=== PATIENT | female | born 1995 | race Caucasian/White ===

== ENCOUNTER → 2020-07-25 10:08 | Outpatient (CLI) | payer BC, SELFPAY ==
--- NOTE | 2020-07-25 13:47 | PC.NURSE ---
PATIENT NOTIFIED OF POSITIVE COVID TEST AT THIS TIME
== END ==
PROVIDERS: PCP Nurse Practitioner Family; Visit Provider Nurse Practitioner
DX: Z20.828 Contact with and (suspected) exposure to other viral communicable diseases (principal); U07.1 COVID-19
CPT/HCPCS: U0003

== ENCOUNTER 2021-08-06 10:04 | Emergency (ER) | payer BC, SELFPAY ==
[2021-08-06 10:35] VITALS: BP 0/0; PULSE 0; RESP 0; TEMP -17.7; TEMP 0
== END 2021-08-06 10:36 | disposition left against medical advice (07) ==
LOC: UTC 10:10
PROVIDERS: Emergency Provider Nurse Practitioner Family; PCP Nurse Practitioner Family
DX: Z53.21 Procedure and treatment not carried out due to patient leaving prior to being seen by health care provider (principal)

== ENCOUNTER → 2021-08-06 10:19 | Outpatient (CLI) | payer BC, SELFPAY | PROVIDERS: PCP Nurse Practitioner Family; Visit Provider Nurse Practitioner | DX: Z20.822 Contact with and (suspected) exposure to COVID-19 (principal) | CPT/HCPCS: C9803; U0003; U0005 ==

== ENCOUNTER 2021-08-27 15:50 | Emergency (ER) | payer BC, SELFPAY ==
[2021-08-27 16:20] VITALS: BP 140/58; PULSE 85; RESP 18; O2SAT 97; BMI 28.5
--- NOTE | 2021-08-27 17:34 | HMH.EDUTC ---
[facility] [place] Disposition Clinical Impression: Nausea & vomiting Qualifiers: Vomiting type: unspecified Qualified Code(s): R11.2 - Nausea with vomiting, unspecified Disposition: Home, Self-Care Condition on Discharge: Good Instructions: DI for Dehydration -- Adult, Nausea and Vomiting-Adult, Promethazine Additional Instructions: Drink extra fluids with and between meals. If you have difficulty drinking, try very small amounts of water or suck on ice chips. ? Avoid fruit juices, as these do not replace minerals and can actually increase diarrhea. ? Children and adults can use sports drinks to replenish electrolytes. Younger children and infants should use products formulated for children, like oral rehydration solutions. ? Eat food in small amounts and let your stomach recover. ? Get lots of rest. You may feel tired or weak. ? No greasy or fried foods for the next 24-48 hours BRAT diet Bananas Rice Apples and [place] ? Make sure to drink plenty of liquids ? Return if needed ? Straight to ER if any life threatening symptoms ? Follow up with family doctor in the next 48-72 hours if no improvement or any worsening of symptoms Use Phenergan suppositorys if you are unable to tolerate the pills and continue vomiting Follow up with your OBGYN for further evaluation and treatment Prescriptions: Promethazine HCl [Phenergan 12.5mg Suppository] 12.5 mg RC Q8HP PRN #10 each PRN Reason: Vomiting Transmission Status: Received by [facility] Referrals: Provider,Referral, [Primary Care Provider] - As needed Time of Disposition: 17:44 Medical Decision Making - Aston Inquiry Pt receiving controlled substance: No Aston was queried for this patient: No Vital Signs: 08/27/21 16:20 08/27/21 17:56 Temperature 98.1 F Pulse Rate 85 Pulse Rate [Right Brachial] 85 Respiratory Rate 18 18 Blood Pressure 140/58 L Blood Pressure [Right Arm] 140/58 L Blood Pressure Mean [Right Arm] 85 Blood Pressure Source [Right Arm] Automatic Cuff Blood Pressure Position [Right Arm] Sitting 02 Sat by Pulse Oximetry 97 Oxygen Delivery Method Room Air Orders (Tests/Meds): ED MEDICATIONS Discontinued Medications Generic Name Dose Route Start Last Admin Trade Name Freq PRN Reason Stop Dose Admin Sodium Chloride 1,000 mls @ 999 mls/hr 08/27/21 16:45 08/27/21 16:20 Sod Chlor 0.9% 1000ml Bag IV 08/27/21 17:45 999 mls/hr .Q1H1M GABBIE Administration Promethazine HCl 12.5 mg 08/27/21 17:42 08/27/21 18:00 Promethazine Hcl 25mg/Ml 1ml Vial IV 08/27/21 17:43 12.5 mg ONCE ONE Administration Sodium Chloride 25 ml 08/27/21 17:42 08/27/21 18:00 Sodium Chloride 0.9% 25ml Bag IV 08/27/21 17:43 25 ml ONCE ONE Administration Medical Decision Narrative: medication discussed with pharmacy Patient states that she has been unable to take oral phenergan due to vomiting therefore will give some suppository phenergan to help with N/V Patient states that she is feeling much better after fluids Lips moist [facility] HPI - General Stated complaint: need fluids Time Seen by Provider: 08/27/21 16:30 Mode of Arrival: Ambulatory Source of Information: Patient Limitations: No Limitations Description of Symptoms (Recalled from Triage Doc. by RN): PATIENT C/O NAUSEA/VOMITING AND DIZZINESS. STATES SHE FEELS DEHYDRATED AND NEEDS IV FLUIDS HEENT Symptoms (Recalled from RN notes): No Resp Symptoms (Recalled from RN notes): No Skin Symptoms (Recalled from RN notes): No MS Symptoms (Recalled from RN notes): No Functional Status (Recalled from RN notes): WNL - History of Present Illness Provider Complaint: Patient states that she has been having nausea and vomiting for several days States that today it is worse States that she is 10wks OB and she hasnt been able to keep anything down States that she feels like she is dehydrated and felt a little dizzy earlier when she stood up State that she spoke with her OBGYN and they recommended
[2021-08-27 17:56] VITALS: BP 140/58; PULSE 85; RESP 18; TEMP 36.7; O2SAT 97
== END 2021-08-27 18:05 | disposition home or self-care (01) ==
PROVIDERS: Emergency Provider Nurse Practitioner
DX: R11.2 Nausea with vomiting, unspecified (principal); R42 Dizziness and giddiness; Z3A.10 10 weeks gestation of pregnancy
CPT/HCPCS: 96365; 96375; 99202; G0463

== ENCOUNTER 2021-12-09 09:02 | Emergency (ER) | payer BC, SELFPAY ==
[2021-12-09 09:19] VITALS: BP 150/79; PULSE 91; RESP 18; TEMP 36.8; O2SAT 99; BMI 33.7
[2021-12-09 09:35] LABS: Strep Scrn Group A (Rapid) Negative (Negative)
[2021-12-09 09:39] LABS: UTC Influenza A Antigen Negative (Negative)
[2021-12-09 09:40] LABS: UTC Influenza B Antigen Negative (Negative)
--- NOTE | 2021-12-09 09:51 | HMH.EDUTC ---
[facility] [place] Disposition Clinical Impression: Strep throat Disposition: Home, Self-Care Condition on Discharge: Good Instructions: Strep Throat, DI for Strep Throat Additional Instructions: Drink plenty of fluids. Take tylenol for pain or fever. Take the medications as directed. Follow up with your regular doctor. GO TO THE ER FOR ANY WORSENING SYMPTOMS Throw your tooth brush away and get a new one. Prescriptions: Azithromycin [Z-Kalin 250mg Tab*] 250 mg PO UD DOSE PK #6 tab Transmission Status: Received by [facility] Referrals: Provider,Referral, [Primary Care Provider] - Forms: Work/School Release Time of Disposition: 09:55 Medical Decision Making - Medical Records Medical records reviewed: No: I reviewed the patient's medical records. - Aston Inquiry Pt receiving controlled substance: No Vital Signs: 12/09/21 09:19 12/09/21 09:56 Temperature 98.2 F 98.2 F Temperature Source Oral Pulse Rate 85 Pulse Rate [Left] 91 H Respiratory Rate 18 18 Blood Pressure 122/78 Blood Pressure [Right Arm] 150/79 H Blood Pressure Mean [Right Arm] 102 Blood Pressure Source [Right Arm] Automatic Cuff Blood Pressure Position [Right Arm] Supine 02 Sat by Pulse Oximetry 99 - Lab Data Lab results reviewed: Yes: I reviewed the patient's lab results. Lab Results 12/09/21 09:15: Group A Strep Rapid Negative 12/09/21 09:20: Influenza Type A Ag Negative, Influenza Type B Ag Negative Orders (Tests/Meds): ORDERS Category Date Time Status Strep Screen Confirmation Stat Micro 12/09/21 09:15 Received [facility] [place] HPI - General Stated complaint: sore throat Time Seen by Provider: 12/09/21 09:20 Mode of Arrival: Ambulatory Source of Information: Patient Description of Symptoms (Recalled from Triage Doc. 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 HEENT Symptoms (Recalled from RN notes): Yes Resp Symptoms (Recalled from RN notes): Yes Skin Symptoms (Recalled from RN notes): No MS Symptoms (Recalled from RN notes): No Functional Status (Recalled from RN notes): wnl - History of Present Illness Provider Complaint: She has had a sore throat for the past 2 days. She is 24 weeks . - Related Data Previous Rx's Medication Instructions Recorded Promethazine HCl [Phenergan 12.5mg 12.5 mg RC Q8HP PRN #10 each 08/27/21 Suppository] Azithromycin [Z-Kalin 250mg Tab*] 250 mg PO UD DOSE PK #6 tab 12/09/21 Allergies Allergy/AdvReac Type Severity Reaction Status Date / Time amoxicillin Allergy Verified 12/09/21 09:27 dextromethorphan Allergy Verified 12/09/21 09:27 [From Delsym] diphenhydramine Allergy Verified 12/09/21 09:27 [From Benadryl] - Worker's Comp Is this a Worker's Comp case?: No H History - Hepatitis A Screen Attestation statement:: This patient has been screened for Hepatitis A risk factors. I have reviewed the patient's past medical history: Yes ROS Obtained: Yes All systems reviewed & no additional complaints - Constitutional Constitutional: Reports chills, Denies fever(s), Reports poor appetite, Reports malaise - Eyes Eyes: Denies eye discharge - ENT Ears, Nose, Mouth, and Throat: Reports as per HPI - Cardiovascular Cardiovascular: Denies chest pain - Respiratory Respiratory: Denies chest congestion, Denies cough Physical Exam - General General appearance: alert, in no apparent distress - Head Head exam: atraumatic, normocephalic, normal inspection - Eye Eye exam: Present: normal appearance, PERRL, EOMI - ENT ENT exam: Present: mucous membranes moist, normal external ear exam - Expanded ENT Exam TM/Canal exam: Bilateral TM: erythema, bulging Nose exam: Absent: sinus tenderness Nasal speculum exam: Bilateral: normal Throat exam: Present: tonsillar erythema, tonsillomegaly, tonsillar exudate - Neck Neck exam: Present: carisa
[2021-12-09 09:56] VITALS: BP 122/78; PULSE 85; RESP 18; TEMP 36.8
== END 2021-12-09 10:02 | disposition home or self-care (01) ==
PROVIDERS: Emergency Provider Nurse Practitioner Family
DX: J02.0 Streptococcal pharyngitis (principal); Z3A.24 24 weeks gestation of pregnancy
CPT/HCPCS: 87430; 87804; 99212; G0463

== ENCOUNTER 2022-07-08 09:02 | Emergency (ER) | payer BC, SELFPAY ==
[2022-07-08 11:04] VITALS: BP 133/79; PULSE 102; RESP 18; TEMP 37.2; O2SAT 98; BMI 24.9
--- NOTE | 2022-07-08 11:05 | EXP.UTC ---
Discharge Plan Disposition Patient Disposition: Home, Self-Care Condition: Good Prescriptions Prescriptions: New azithromycin [Zithromax] 250 mg tablet 250 mg PO UD DOSE PK Qty: 6 0RF Rx Instructions: Take two (2) tablets today, then one (1) tablet days #2 thru #5 No Action promethazine 12.5 MG suppository 12.5 mg RC Q8HP PRN (Reason: Vomiting) Qty: 10 0RF azithromycin 250 MG tablet 250 mg PO UD DOSE PK Qty: 6 0RF Rx Instructions: Take two (2) tablets today, then one (1) tablet days #2 thru #5 Referrals Follow up/Referrals: Provider,Referral, MD [Primary Care Provider] - See instructions Activity Restrictions/Add. Instructions Additional Instructions/Restrictions: Drink plenty of fluids. Take tylenol or ibuprofen for pain or fever. Take the medications as directed. Follow up with your regular doctor. GO TO THE ER FOR ANY WORSENING SYMPTOMS Clinical Impressions Clinical Impression: Pharyngitis Stand Alone Forms Stand Alone Forms: Work/School Release Instructions Patient Instructions: DI for Pharyngitis/Tonsillopharyngitis -- Adult Discharge ED Provider: Angel Louis [facility] General Stated complaint: sore throat Time Seen by Provider: 07/08/22 11:05 History of Present Illness Provider Complaint: She states that since yesterday she has had a sore throat, chills, and she has felt bad. 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 Related Data Previous Rx's Medication Instructions Recorded promethazine 12.5 mg rectal 12.5 mg RC Q8HP PRN Vomiting #10 ea 08/27/21 suppository azithromycin 250 mg tablet 250 mg PO UD DOSE PK #6 tabs 12/09/21 azithromycin 250 mg tablet 250 mg PO UD DOSE PK #6 tabs 07/08/22 (Zithromax) Allergies Allergy/AdvReac Type Severity Reaction Status Date / Time amoxicillin Allergy Verified 07/08/22 11:07 dextromethorphan Allergy Verified 07/08/22 11:07 [From Delsym] diphenhydramine Allergy Verified 07/08/22 11:07 [From Benadryl] [facility] Social History Smoking Status: Never smoker alcohol intake: never current occupational status: employed Travel in the last 8 weeks: None ROS Obtained: Yes All systems reviewed & no additional complaints except as documented Constitutional Constitutional: Reports chills and Reports fever(s) Eyes Eyes: Denies eye discharge ENT Ears, Nose, Mouth, and Throat: Reports as per HPI Cardiovascular Cardiovascular: Denies chest pain Respiratory Respiratory: Denies chest congestion and Reports cough Gastrointestinal Gastrointestingal: Reports nausea; Denies abdominal pain, constipation, cramping, diarrhea or vomiting Musculoskeletal Musculoskeletal: Denies arthralgias Integumentary/Breasts Skin/Breast: Denies rash Neurologic Neurologic: Denies paresthesias Physical Exam General General appearance: alert and in no apparent distress Head Head exam: atraumatic, normocephalic and normal inspection Eye Eye exam: Present normal appearance, PERRL and EOMI ENT ENT exam: Present mucous membranes moist and normal external ear exam Expanded ENT Exam TM/Canal exam: Bilateral TM: erythema and bulging Nose exam: Absent sinus tenderness Mouth exam: Present normal external inspection; Absent drooling Teeth exam: Present normal inspection Throat exam: Present tonsillar erythema, tonsillomegaly and tonsillar exudate Neck Neck exam: Present normal inspection, full ROM and trachea midline; Absent tenderness, meningismus or lymphadenopathy Chest Chest inspection: Present normal inspection and symmetric chest wall rise; Absent tenderness Respiratory Respiratory exam: Present normal lung sounds bilaterally; Absent respiratory distress, wheezes or stridor Cardiovascular Cardiovascular exam: Present regular rate and normal rhythm; Absent systolic murmur or diastolic m
[2022-07-08 11:13] LABS: UTC Influenza A Antigen Negative (Negative); UTC Strep Screen (Rapid) Negative (Negative)
[2022-07-08 11:14] LABS: UTC Influenza B Antigen Negative (Negative)
[2022-07-08 11:34] VITALS: BP 133/79; PULSE 102; RESP 18; TEMP 37.2
[2022-07-08 11:41] LABS: Adenovirus,PCR Not Detected (NotDetected); Bordetella Pertussis Not Detected (NotDetected); Chlamydophila Pneumoniae, PCR Not Detected (NotDetected); Coronavirus 19, PCR Not Detected (NotDetected); Coronavirus 229E Not Detected (NotDetected); Coronavirus NL63 Not Detected (NotDetected); Coronavirus OC43 Not Detected (NotDetected); Coronovirus HKU1,PCR Not Detected (NotDetected); Human Metapneumovirus Not Detected (NotDetected); Influenza A, PCR Not Detected (NotDetected); Influenza AH1, 2009 Not Detected (NotDetected); Influenza AH1, PCR Not Detected (NotDetected); Influenza AH3,PCR Not Detected (NotDetected); Influenza B, PCR Not Detected (NotDetected); Mycoplasma Pneumoniae, PCR Not Detected (NotDetected); Parainfluenza 1, PCR Not Detected (NotDetected); Parainfluenza 2, PCR Not Detected (NotDetected); Parainfluenza 3, PCR Not Detected (NotDetected); Parainfluenza 4, PCR Not Detected (NotDetected); Respiratory Syncytial Virus Not Detected (NotDetected); Rhinovirus/Enterovirus Not Detected (NotDetected)
== END 2022-07-08 11:47 | disposition home or self-care (01) ==
PROVIDERS: Emergency Provider Nurse Practitioner Family
DX: J02.9 Acute pharyngitis, unspecified (principal); R11.10 Vomiting, unspecified; R50.9 Fever, unspecified; R05.9 Cough, unspecified; Z20.822 Contact with and (suspected) exposure to COVID-19; Z88.0 Allergy status to penicillin; Z88.1 Allergy status to other antibiotic agents; Z88.3 Allergy status to other anti-infective agents; Z88.8 Allergy status to other drugs, medicaments and biological substances
CPT/HCPCS: 87581; 87632; 87798; 87804; 87880; 99213; C9803; G0463; U0003; U0005